=== PATIENT | female | born 1990 | race Caucasian/White ===

== ENCOUNTER 2017-12-28 09:10 | Emergency (ER) | payer OTHER ==
[2017-12-28 09:39] LABS: URINE BLOOD (Dip) POC Trace-intact (NEGATIVE); URINE GLUCOSE (Dip) POC Negative (NEGATIVE); URINE KETONES (Dip) POC Negative (NEGATIVE); URINE LEUKOCYTE EST (Dip) POC Trace (NEGATIVE); URINE NITRITE (Dip) POC Negative (NEGATIVE); URINE TOTAL PROTEIN POC Trace (NEGATIVE)
[2017-12-28 09:55] LABS: ADD MAN DIFF? NO
[2017-12-28 09:57] LABS: WHITE BLOOD COUNT 5.3 10^3/ul (4.8-10.8)
[2017-12-28 09:57] LABS: BASOPHILS % 0.4 % (0.0-2.0); EOSINOPHILS % 0.6 % (0.0-7.0); HEMATOCRIT 36.6 % (37.0-47.0); HEMOGLOBIN 12.9 g/dl (12.0-16.0); LYMPHOCYTES # 1.8 10^3/ul (0.8-2.9); LYMPHOCYTES % 34.8 % (15.0-51.0); MEAN CORPUSCULAR HEMOGLOBIN 31.5 pg (29.0-33.0); MEAN CORPUSCULAR HGB CONC 35.2 g/dl (32.0-37.0); MEAN CORPUSCULAR VOLUME 89.3 fl (82.0-101.0); MEAN PLATELET VOLUME 10.6 fl (7.4-10.4); MONOCYTE # 0.4 10^3/ul (0.3-0.9); MONOCYTES % 6.8 % (0.0-11.0); PLATELET COUNT 196 10^3/UL (140-415); RED CELL DISTRIBUTION WIDTH 12.2 % (11.5-14.5)
[2017-12-28] MEDS: ONDANSETRON 4 MG INJ IV (10:03)
[2017-12-28] MEDS: SOD CHLORIDE 0.9% 1,000 ML IV (10:03)
[2017-12-28] MEDS: KETOROLAC 30 MG INJ IV (10:03)
[2017-12-28 10:25] LABS: ALANINE AMINOTRANSFERASE 25 IU/L (13-69); ALBUMIN 4.1 g/dl (3.3-4.9); ALBUMIN/GLOBULIN RATIO 1.36; ALKALINE PHOSPHATASE 36 IU/L (42-121); ANION GAP 13 (8-16); ASPARTATE AMINO TRANSFERASE 14 IU/L (15-46); BILIRUBIN,INDIRECT 0.7 mg/dl (0-1.1); BILIRUBIN,TOTAL 0.7 mg/dl (0.2-1.3); BLOOD UREA NITROGEN 10 mg/dl (7-20); CARBON DIOXIDE 26 mmol/L (21-31); CHLORIDE 106 mmol/L (97-110); GLUCOSE 89 mg/dl (70-220); POTASSIUM 3.6 mmol/L (3.5-5.1); SODIUM 141 mmol/L (135-144); TOTAL PROTEIN 7.1 g/dl (6.1-8.1)
== END 2017-12-28 10:50 | disposition home or self-care (01) ==
LOC: FTE 09:10
DX: R51 Headache (principal)
CPT/HCPCS: 36415; 70450; 80053; 81003; 81025; 85025; 96361; 96374; 96375; 99285-25